=== PATIENT | male | born 1995 | race Caucasian/White ===

== ENCOUNTER 2019-07-25 14:36 | Emergency (ER) | payer MEDICAID, SELFPAY ==
[2019-07-25 14:42] VITALS: BP 142/80; PULSE 111; RESP 17; TEMP 37.1; O2SAT 97
--- NOTE | 2019-07-25 15:21 | W.ED.GENAD ---
Discharge Plan Disposition Patient Disposition: HOME Condition: Stable Discharge Details Chief Complaint: Nausea/Vomit/Diar Clinical Impression: Nausea vomiting and diarrhea Primary Care Provider: Shay Cooley ED Provider: Nicolasa Madrigal Home Meds and New Rx's Prescriptions: New famotidine [Pepcid] 20 mg tablet 20 mg PO DAILY Qty: 14 RF: 0 ondansetron 4 mg tablet,disintegrating 4 mg PO TID PRN (Reason: nausea and vomiting) Qty: 6 RF: 0 Discharge Instructions Instructions: Acute Nausea and Vomiting (ED) Additional Instructions: Drink plenty of fluids and get plenty of rest. Take the Zofran as needed and directed for nausea and vomiting. Take the Pepcid daily for the next 2 weeks. Follow up with your primary care doctor in 1 week as needed. Return to the emergency department with any worsening or new concerning symptoms. Discharge Data Discharge Physician: Nicolasa Madrigal Medical Decision Making 24-year-old male w/ no past medical history who presents for vomiting and diarrhea since 5 AM this morning. No known sick contacts or exposures. Heart rate 111 on on arrival. Appears nontoxic. Abdomen soft nontender. Zofran, screening labs and IV fluids obtained on arrival. White blood cell count 12.46, anion gap 13.4 consistent with mild dehydration. Total bilirubin 1.6, has been 1.3 five years ago. No other acute significant findings on labs. Patient reassessed and is requesting to go home. He was given Zofran and Pepcid and had complete resolution of his symptoms. He is advised to follow-up with his PCP and return here anytime if worse. Usual and customary return precautions given prior to discharge. Medical Records Medical records reviewed: Yes I reviewed the patient's medical records. Lab Data Lab results reviewed: Yes I reviewed the patient's lab results. Labs: Laboratory Tests Range/Units 07/25/19 07/25/19 15:10 15:10 WBC (4.4-10.8) k/cumm 12.46 H RBC (4.50-6.00) m/cumm 5.93 Hgb (13.5-17.5) g/dL 18.1 H Hct (40.0-50.0) % 50.6 H MCV (80-95) fL 85.3 MCH (27.0-33.0) pg 30.5 MCHC (32.0-36.0) g/dL 35.8 RDW (11.8-14.1) % 12.6 Plt Count (130-400) x1000/uL 195 MPV (8.0-11.0) fL 10.4 Immature Gran % % 0.2 Neutrophils % 94.0 Lymphocytes % 2.1 Monocytes % 3.5 Eosinophils % 0.1 Basophils % 0.1 Absolute Neutrophils (1.2-6.7) k/cumm 11.71 H Absolute Lymphocytes (1.2-3.4) k/cumm 0.26 L Absolute Monocytes (0.11-0.7) k/cumm 0.44 Absolute Eosinophils (0.0-0.7) k/cumm 0.01 Absolute Basophils (0.0-0.2) k/cumm 0.01 Sodium (136-145) mmol/L 140 Potassium (3.5-5.1) mmol/L 3.9 Chloride (98-107) mmol/L 102 Carbon Dioxide (21.0-32.0) mmol/L 24.6 Anion Gap (3-11) mmol/L 13.4 H BUN (7-18) mg/dL 19 H Creatinine (0.70-1.30) mg/dL 1.20 Estimated GFR/1.73 m2 (mL/min/1.73m2) >= 60.00 Glucose (74-106) mg/dL 130 H Calcium (8.5-10.1) mg/dL 9.4 Total Bilirubin (0.2-1.0) mg/dL 1.6 H AST (15-37) U/L 13 L ALT (16-63) U/L 20 Alkaline Phosphatase (46-116) U/L 80 Total Protein (6.4-8.2) g/dL 8.2 Albumin (3.4-5.0) g/dL 4.8 Lipase (73-393) U/L 58 HPI General Mode of arrival: ambulatory. Date/Time Provider Initiated Documentation: 07/25/19 14:59. Limitations to Documentation: no limitations. Information obtained by: patient. HPI Narrative: Patient is a 24-year-old male with no past medical history presents with vomiting and diarrhea since 5 AM this morning. He admits to approximately 10 episodes of watery vomit with food particles and more than 10 episodes of watery brown diarrhea. Denies any hematemesis or hematochezia. He denies any fever, cough, chest pain, shortness of breath, abdominal pain or urinary symptoms. He denies any recent travel, known sick contacts, recent antibiotics or any other new medications or exposure. Related Data Home Medications Medication Instructions Recorded Confirmed famotidine [Pepcid] 20 mg PO DAILY #14 tab 07/25/19 ondansetron 4 mg PO TID PRN #6 tab 07/25/19 Previous Rx's Medication Instructions Recorded famotidine [Pepcid] 20 mg PO DAILY #14 tab 07/25/19 ondansetron 4 mg PO TID PRN #6 tab 07/25/19 Allergies Allergy/AdvReac Type Severity Reaction Status Date / Time No Known Allergies Allergy Verified 07/25/19 14:45 General Stated Complaint: Nausea/Vomit/Diar QUINCY: 4 Review of Systems All systems reviewed & are unremarkable except as noted in HPI and below Constitutional Constitutional: Reports as per HPI, Denies chills and Denies fever(s) Eyes Eyes: Denies blurry vision ENT Ears, Nose, Mouth, and Throat: Denies dizziness, Denies sore throat and Denies throat swelling Cardiovascular Cardiovascular: Denies chest pain and Denies dyspnea Respiratory Respiratory: Denies cough and Denies dyspnea Gastrointestinal Gastrointestinal: Denies abdominal pain, Reports diarrhea and Reports vomiting Genitourinary Genitourinary: Denies hematuria and Denies dysuria Musculoskeletal Musculoskeletal: Denies back pain and Denies numbness Integumentary/Breasts Skin/Breast: Denies lesions and Denies rash Neurologic Neurologic: Denies dizziness, Denies localized weakness and Denies numbness Allergic/Immunologic Allergic/Immunologic: Denies throat swelling [facility] Medical History (Updated 07/25/19 @ 16:12 by Nicolasa Madrigal DO) No significant past medical history (Acute) Surgical History (Updated 07/25/19 @ 16:02 by Nicolasa Madrigal DO) No significant past surgical history (Acute) Family History Mother Essential hypertension Kidney transplanted Father Essential hypertension Brother No problems noted. Grandfather Essential hypertension Hyperlipidemia Grandfather No problems noted. Grandmother Personal history of malignant neoplasm uterine Grandmother Personal history of malignant neoplasm liver Other Myocardial infarction Social History Smoking/Tobacco Use Status: Never Alcohol Intake: never Drug use: Never Do you feel safe at home: Yes Do you feel safe in your relationship?: Yes Exam Const General: cooperative, healthy appearing and no acute distress HENMT Head: normal to inspection Face and sinus: normal facial exam Eyes General: appearance normal, both eyes and all related structures EOM: EOM intact bilaterally Neck Neck: normal visual inspection and No submandibular swelling Lymphatic: no lymphadenopathy noted Chest Chest: normal inspection of the chest and no tenderness Resp Effort & Inspection: normal respiratory effort and able to speak in complete sentences Auscultation: clear to auscultation bilaterally Cardio Rate: regular rate Rhythm: regular rhythm GI Inspection: normal to inspection Palpation: soft, not firm, not rigid and nontender Auscultation: normal bowel sounds Male General Exam: Yes normal external exam Penis: normal penis Scrotum: scrotum normal Skin General skin exam: no rashes or lesions noted Neuro General: patient alert, patient awake and patient oriented x3 Cognition: normal cognition Speech: speech normal Motor: muscle tone normal throughout Sensory Exam: no sensory deficits noted Extrem General: normal to inspection, full ROM, capillary refill normal, no calf tenderness bilaterally and no edema Psych Appearance: grossly normal Mental Status: mental status grossly normal Speech and Movement: speech and movement normal Affect: normal affect Course Vital Signs Vital signs: Vital Signs Temperature 98.8 F 07/25/19 14:42 Pulse 111 H 07/25/19 14:42 Respiratory Rate 17 07/25/19 14:42 Blood Pressure 142/80 H 07/25/19 14:42 Pulse Oximetry 97 07/25/19 14:42 Temperature 98.8 F 07/25/19 14:42 Temperature Source Tympanic 07/25/19 14:42 Pulse 111 H 07/25/19 14:42 Respiratory Rate 17 07/25/19 14:42 Respiratory Effort 07/25/19 14:46 Blood Pressure 142/80 H 07/25/19 14:42 Blood Pressure Position Sitting 07/25/19 14:42 Pulse Oximetry 97 07/25/19 14:42 Oxygen Delivery Method Room Air 07/25/19 14:42 Oxygen Flow Rate 0 07/25/19 14:42 Pain Level 3 07/25/19 14:42
[2019-07-25 15:29] LABS: Abs Immature Grans 0.03 k/cumm (0.0-0.09); Absolute Basophil Count 0.01 k/cumm (0.0-0.2); Absolute Eosinophil Count 0.01 k/cumm (0.0-0.7); Absolute Lymphocyte Count 0.26 k/cumm (1.2-3.4); Basophils % 0.1; Eosinophils % 0.1; HCT 50.6 % (40.0-50.0); HGB 18.1 g/dL (13.5-17.5); Immature Grans % 0.2 %; Lymphocytes % 2.1; Mean Corp. HGB Concentration 35.8 g/dL (32.0-36.0); Mean Corpuscular Hemoglobin 30.5 pg (27.0-33.0); Mean Corpuscular Volume 85.3 fL (80-95); Mean Platelet Volume 10.4 fL (8.0-11.0); Monocytes % 3.5; Platelet Count 195 x1000/uL (130-400); RBC 5.93 m/cumm (4.50-6.00); RBC Distribution Width 12.6 % (11.8-14.1); White Blood Cell Count 12.46 k/cumm (4.4-10.8)
[2019-07-25] MEDS: Normal Saline 1,000 ML 1000 ML IV (15:29)
[2019-07-25] MEDS: Ondansetron 4 MG/2 ML VIAL IVP ×2 (15:30→16:01)
[2019-07-25 15:33] LABS: Absolute Monocyte Count 0.44 k/cumm (0.11-0.7); Absolute Neutrophil Count 11.71 k/cumm (1.2-6.7)
[2019-07-25 15:56] LABS: ALT 20 U/L (16-63); AST 13 U/L (15-37); Albumin 4.8 g/dL (3.4-5.0); Alkaline Phosphatase 80 U/L (46-116); Anion Gap 13.4 mmol/L (3-11); BUN 19 mg/dL (7-18); Bilirubin, Total 1.6 mg/dL (0.2-1.0); CO2 24.6 mmol/L (21.0-32.0); Calcium 9.4 mg/dL (8.5-10.1); Chloride 102 mmol/L (98-107); Glucose 130 mg/dL (74-106); Lipase 58 U/L (73-393); Potassium 3.9 mmol/L (3.5-5.1); Sodium 140 mmol/L (136-145); Total Protein 8.2 g/dL (6.4-8.2)
[2019-07-25 16:14] VITALS: BP 115/60; PULSE 78; RESP 16; TEMP 37.1; O2SAT 98
[2019-07-25 16:15] VITALS: BP 115/60; PULSE 78; RESP 16; TEMP 37.1; O2SAT 98
== END 2019-07-25 16:20 | disposition home or self-care (01) ==
PROVIDERS: Emergency Provider Physician Assistant; PCP Family Medicine
DX: R11.2 Nausea with vomiting, unspecified (principal); R19.7 Diarrhea, unspecified
CPT/HCPCS: 36415; 80053; 83690; 96361; 96374; 96376; 99284; 85025; 99283; J2405

== ENCOUNTER 2022-09-18 12:31 | Emergency (ER) | payer MEDICAID, SELFPAY ==
[2022-09-18 12:49] VITALS: BP 123/75; PULSE 78; RESP 16; TEMP 36.8; O2SAT 99
[2022-09-18 14:52] VITALS: BP 121/69; PULSE 65; RESP 18; TEMP 36.6; O2SAT 98
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
[2022-09-18 16:37] VITALS: BP 145/76; PULSE 62; RESP 18; TEMP 36.6; O2SAT 98
== END 2022-09-18 16:44 | disposition home or self-care (01) ==
PROVIDERS: Emergency Provider Physician Assistant; PCP Family Medicine
DX: M25.511 Pain in right shoulder (principal); M25.532 Pain in left wrist; V28.49XA Other motorcycle driver injured in noncollision transport accident in traffic accident, initial encounter
CPT/HCPCS: 90471; 99284; 73030; 73110

== ENCOUNTER → 2022-09-23 00:53 | Outpatient (CLI) | payer MEDICAID, SELFPAY ==
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
== END ==
PROVIDERS: PCP Family Medicine; Visit Provider Family Medicine
DX: M25.532 Pain in left wrist (principal)
CPT/HCPCS: 73110

== ENCOUNTER 2022-10-26 15:16 | Outpatient (CLI) | payer MEDICAID, SELFPAY ==
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
== END 2022-10-26 15:17 | disposition home or self-care (01) ==
LOC: DIORS 15:16
PROVIDERS: PCP Family Medicine; Visit Provider Student in an Organized Health Care Education/Training Program
DX: S62.015D Nondisplaced fracture of distal pole of navicular [scaphoid] bone of left wrist, subsequent encounter for fracture with routine healing (principal); V28.49XD Other motorcycle driver injured in noncollision transport accident in traffic accident, subsequent encounter; X58.XXXD Exposure to other specified factors, subsequent encounter
CPT/HCPCS: 73110